=== PATIENT | male | born 1995 | race Caucasian/White ===

== ENCOUNTER 2017-06-20 03:09 | Emergency (ER) | payer BC, OTHER ==
[~2017-06-20] VITALS: Ht 182.9 cm; Wt 82.1 kg
[2017-06-20 03:14] VITALS: TEMP 36.9; Ht 182.9 cm; Wt 82.1 kg
[2017-06-20] MEDS ORDERED: LIDOCAINE HCL 1% 20 ML VIAL ONE (03:22)
[2017-06-20 03:36] VITALS: BP 128/92; PULSE 105; O2SAT 96
--- NOTE | 2017-06-20 23:13 | EMERGENCY ROOM VISIT NOTE ---
History First contact with patient: 03:17 Chief Complaint: LACERATION/CUT (SUT/DERMABOND) Stated Complaint: FALL, LACERATION TO HEAD Nursing Triage Summary: Pt reports he was wrestling around with friends and struck right side of head on railing. Denies LOC History of Present Illness The patient is a 22 year old male who presents to the Emergency Room with complaints of laceration to the right side of his scalp. The patient was wrestling with his friends tonight when he struck his head on a piece of furniture. The patient did not lose consciousness or have any seizure-like activity after the injury. He does not have other pain such as head pain, neck pain, chest pain, numbness, or paresthesias. He is a poorly up-to-date on his tetanus. He rates his discomfort a 4/10. Review of Systems More than 10 systems were reviewed and otherwise negative with the exception of history of present illness. Past Medical/Surgical History chronic medical disease Social History Smoking Status: Current Every Day Smoker Occupation Status: [employer] student Current/Historical Medications No Active Prescriptions or Reported Meds Physical Exam Vital Signs Date Time Temp Pulse Resp B/P (MAP) Pulse Ox O2 Delivery O2 Flow Rate FiO2 06/20/17 03:36 105 18 128/92 96 06/20/17 03:14 36.9 128 20 134/76 95 Room Air Physical Exam VITALS: Vitals are noted on the nurse's note and reviewed by myself. Vital signs stable. GENERAL: Well-developed, well-nourished, white male, who is in no acute distress and resting comfortably. Patient is cooperative with the examination. HEAD: There is a 3.0 cm fairly linear laceration to the right side posterior scalp. This wound does gape and will require repair. EARS: External ear normal. External auditory canals clear, tympanic membranes pearly dudley without erythema or effusion bilaterally. EYES: Pupils equal round and reactive to light and accommodation. Conjunctivae without injection, sclerae without icterus. Extraocular movements intact. NOSE: Patent, turbinates without inflammation or discharge. MOUTH: Mucous membranes moist. Tonsils are not enlarged. Pharynx without erythema, blood, or exudate. Uvula midline. Airway patent. NECK: Supple without nuchal rigidity. No lymphadenopathy. No thyromegaly. Cervical spine is nontender. HEART: Regular rate and rhythm without murmurs gallops or rubs. LUNGS: Clear to auscultation bilaterally without wheezes, rales or rhonchi. No retractions or accessory muscle use. Medical Decision & Procedures Procedure Laceration repair. Patient elects to have their laceration repaired. Verbal consent was obtained to perform the procedure. There is an abundance of materials available for the procedure. Patient is not allergic to latex. Using sterile technique the wound was cleaned with Betadine. The area was sterilely draped. 4 ml of 1% buffered lidocaine was used to anesthetize the scalp laceration. Once the patient was anesthetized, the wound was copiously irrigated under pressure with sterile saline. The wound was explored and there were no deep structures injured such as tendons, bone, or significant blood vessels. The laceration was repaired using 6 lexi with the wound edges being well approximated. Hemostasis was achieved. The area was cleaned with sterile saline and dressed with bacitracin ointment and bandage. Patient tolerated the procedure well without complications. Blood loss was negligible. ED Course Physical exam and history were performed. Nursing notes, EMR, and Medication List were personally reviewed. Patient appears to have a laceration to his scalp as described above. The wound was repaired and the patient tolerated the procedure well. He does not appear to have other signs of injury and was given discharge instructions as below. The chart was completed utilizing [employer] Speech Voice Recognition Software. Grammatical errors, random word insertions, pronoun errors, and incomplete sentences are an occasional consequence of this system due to software limitations, ambient noise, and hardware issues. Any formal questions or concerns about the content, text, or information contained within the body of this dictation should be directly addressed to the provider for clarification. . Medical Decision Differential diagnosis includes, but is not limited to: Laceration, abrasion, head injury, and others Impression Primary Impression: Scalp laceration Departure Information Dispostion Home / Self-Care Condition GOOD Prescriptions No Active Prescriptions or Reported Meds Forms HOME CARE DOCUMENTATION FORM, IMPORTANT VISIT INFORMATION Patient Instructions [facility], ED Laceration All, ED Scar Tips to Minimize Additional Instructions Keep wound clean and dry. Do not allow any crusting or dried blood to accumulate on stapless. If this occurs, use a mild soap/water on a Q-tip to clean the wound. Do not use Peroxide to clean the wound as this can delay healing Use an antibiotic ointment like Bacitracin for 3-4 days, then let wound dry. You may bathe and shower as normal, but DO NOT SOAK the wound. Staple removal in about 10 days with [facility], your Family Doctor, or in the ER. Return sooner for any signs of infection, increasing redness, swelling, or drainage.
== END 2017-06-20 03:39 | disposition home or self-care (01) ==
LOC: C.EDB 03:11 → C.EDA 03:39
DX: S01.01XA Laceration without foreign body of scalp, initial encounter (principal); W22.8XXA Striking against or struck by other objects, initial encounter; Y93.83 Activity, rough housing and horseplay; F17.200 Nicotine dependence, unspecified, uncomplicated